=== PATIENT | female | born 1965 | race Caucasian/White ===

== ENCOUNTER 2018-08-26 07:21 | Day surgery (SDC) | payer MEDICAID ==
[2018-08-26] MEDS ORDERED: MIDAZOLAM 1 MG/ML 2 ML INJ (09:26)
[2018-08-26] MEDS ORDERED: FENTAnyl 50 MCG/ML VIAL (09:27)
[2018-08-26] MEDS: BUPIVACAINE 0.5%/EPI (SDV) 10 ML INJ (09:27)
[2018-08-26] MEDS: LIDOCAINE 1% (MPF) 30 ML INJ (10:02)
[2018-08-26] MEDS ORDERED: PROPOFOL 20 ML (10:08)
[2018-08-26] MEDS ORDERED: CEFAZOLIN 1 GM INJ (10:08)
[2018-08-26] MEDS ORDERED: LIDOCAINE 2% (SDV) 5 ML INJ (10:08)
[2018-08-26] MEDS ORDERED: DIPHENHYDRAMINE 50 MG INJ IV (10:30)
[2018-08-26] MEDS ORDERED: MEPERIDINE 25 MG INJ IV (10:30)
[2018-08-26] MEDS ORDERED: HYDROmorphONE 1 MG/5 ML IV SYRINGE IV ×2 (10:30)
[2018-08-26] MEDS ORDERED: FENTAnyl 50 MCG/ML VIAL IV (10:30)
[2018-08-26] MEDS ORDERED: METOCLOPRAMIDE 10 MG INJ IV (10:30)
[2018-08-26] MEDS ORDERED: ONDANSETRON 4 MG INJ IV (10:30)
== END 2018-08-26 11:10 | disposition home or self-care (01) ==
LOC: SDS 07:21
DX: L82.1 Other seborrheic keratosis (principal)
CPT/HCPCS: 19101; 88305